=== PATIENT | male | born 1955 | race Caucasian/White ===

== ENCOUNTER 2017-12-14 15:06 | Observation (INO) | payer OTHER ==
[~2017-12-14] VITALS: Ht 170.2 cm; Wt 73.6 kg
--- NOTE | 2017-12-14 15:22 | ED CARDIAC/CP/PALPITATIONS ---
History of Present Illness General Chief Complaint: Chest Pain Stated Complaint: BIBA CP Source: patient, old records, EMS Exam Limitations: no limitations Vital Signs & Intake/Output Vital Signs & Intake/Output Vital Signs Date Time Temp Pulse Resp B/P B/P Pulse O2 O2 Flow FiO2 Mean Ox Delivery Rate 12/15 0711 98.1 64 18 130/60 98 Room Air 12/14 2134 140/88 12/149 98.4 62 18 150/80 98 Room Air 12/14 2000 97.6 66 18 174/86 97 Room Air Room Air 12/14 1728 97.4 56 18 179/84 97 12/14 1620 99 Nasal 2.0L Cannula 12/14 1510 98.2 78 18 186/89 96 Room Air Room Air ED Intake and Output 12/15 0000 12/14 1200 Intake Total 120 Output Total 300 Balance -180 Intake, Oral 120 Output, Urine 300 Patient 162 lb Weight Weight Bed scale Measurement Method Allergies Coded Allergies: NO KNOWN ALLERGIES (12/01/11) Triage Nurses Notes Reviewed? yes Onset: Abrupt Duration: day(s): (3), constant, waxing and waning Timing: recent history Quality/Severity: moderate, aching Location: L SIDED Radiation: arms Activities at Onset: none Prior Chest Pain/Card Workup: no prior chest pain Modifying Factors: Worsens With: exercise, movement. Nitro Today/Relief: 0.4 mg x 1, provided by EMS, mild relief Aspirin Today: 325 mg x 1, provided by EMS Associated Symptoms: DENIES HPI: 62-year-old male nonsmoker with no medical history presents complaining of a three-day history of left-sided chest pain radiating down his left arm worse with exertion associated with shortness of breath with exertion. Patient is medicated with sublingual nitroglycerin in route with improvement in symptoms to 5 out of 10. He denies dizziness lightheadedness nausea vomiting abdominal pain active pain or neck pain. Brennan denies history of cardiac disease in his family. No history of similar episodes in the past. (Trini ROSE,Evan) Reconcile Medications Naproxen (Naprosyn) 500 MG TABLET 1 TAB PO EOD PAIN/INFLAMMATION (Reported) Omeprazole 40 MG CAPSULE.DR 1 CAP PO DAILY GI (Reported) (Nimco SR,Liu Porras) Past History Travel History Traveled to [place] past 21 day No Medical History Any Pertinent Medical History? none Surgical History Surgical History: non-contributory Psychosocial History What is your primary language [place] Tobacco Use: Never used ETOH Use: denies use Family History Hx Contributory? No (Evan Benedict) Review of Systems Review of Systems Constitutional: Reports: see HPI. Comments Review of systems: See HPI, All other systems negative. Constitutional, no chills no fever HEENT: no sore throat no congestion Cardiovascular: chest pain , no palpitation Skin: no rashes, no change in skin Respiratory: No dyspnea no cough no sputum GI: No nausea no vomiting : No dysuria No hematuria, no frequency Muscle skeletal: No joint pain, no back pain Neurologic: , no headache Heme/endocrine: No bruising Immunology: No lymphadenopathy (Evan Benedict) Physical Exam Physical Exam General Appearance: well developed/nourished, alert, awake Cardiovascular: regular rate/rhythm Comments: Well-developed well-nourished person in no acute distress HEENT: Normal EENT exam; PERRL, EOMI, HEAD is atraumatic. moist mucous membranes. Neck: Supple, normal range of motion without pain or tenderness Back: Nontender, Full range of motion Cardiovascular: Regular rate and rhythms no murmur Respiratory: Chest nontender.There were no bony deformities, no asymmetry. No respiratory distress. Patient speaking in full complete sentences. Breath sounds clear to auscultation bilaterally: NO W/R/R Abdomen: Soft, nontender nondistended, no appreciable organomegaly. Normal bowel sounds. No rebound/guarding, Extremity: No edema, full range of motion of extremities Neuro: Alert oriented x3, motor sensory normal, There were no obvious focal neurologic abnormalities. Skin: No appreciable rash on exposed skin, skin is warm and dry. Psych: Mood and affect is normal, memory and judgment is normal. Core Measures ACS in differential dx? Yes CVA/TIA Diagnosis No Sepsis Present: No Sepsis Focused Exam Completed? No (Evan Benedict) Progress Differential Diagnosis: AMI, aortic dissection, atrial fibrillation, musculoskeletal pain, myocarditis, pericarditis, pneumonia, pneumothorax, pulmonary embolism, unstable angina, V-fib/V-Tach Plan of Care: Orders Procedure Date/time Status Heart Healthy Diet 12/15 B Active TSH REFLEX 12/15 599 Complete LYME TITRE 12/15 599 Active LIPID PANEL 05/20 0600 Complete CBC WITHOUT DIFFERENTIAL 05/20 0600 Complete BASIC ELECTROLYTES PLUS BUN&CR 12/15 0600 Complete TROPONIN LEVEL 12/15 0400 Complete EKG 12/15 0400 Active Pathway - chart 12/14 2333 Active TROPONIN LEVEL 12/14 2210 Complete EKG 12/14 2210 Active Weight 12/14 2056 Complete Vital Signs 12/14 204 Active Teach/Educate 12/15 2047 Active Pain Treatment and Response 12/15 2047 Active Nutritional Intake, Monitor 12/15 2047 Active Isolation 12/15 2047 Active Intake & Output 12/15 2047 Complete Patient Care Conference 12/15 2047 Active Activity/Ambulation 12/15 2047 Active Pathway - chart 12/15 2043 Active Pathway - chart 12/14 2009 Active Patient Data 12/[address] in observation 12/14 1800 Active ED Holding Orders 12/14 1800 Active Vital Signs 12/14 1800 Complete Code Status 12/14 1800 Active Intake & Output 12/14 1601 Active Telemetry/Protective Signal Installer 12/14 1510 Active TROPONIN LEVEL 12/14 1510 Complete COMPREHENSIVE METABOLIC PANEL 12/14 1510 Complete CBC WITHOUT DIFFERENTIAL 12/14 1510 Complete EKG 12/14 1510 Active TRC EVALUATION (GEN) 12/14 UNK Active Pathway - chart 12/14 UNK Active House Staff 12/14 UNK Active VTE Mechanical Prophylaxis 12/14 UNK Active Vital Signs 12/14 UNK Complete EKG 12/14 UNK Active Current Medications Sig/Janine Start time Last Medication Dose Stop Time Status Admin Aspirin 81 MG DAILY 12/15 0900 AC (Aspirin) Enoxaparin Sodium 40 MG DAILY 12/15 0900 AC (Lovenox) Omeprazole 40 MG DAILY AC 12/15 0700 AC 12/15 (Prilosec) 0539 Acetaminophen 650 MG Q6P PRN 12/14 2330 AC (Tylenol) Melatonin 5 MG AT BEDTIME 12/14 2199 AC 12/14 (Melatonin) 220 Multivitamins 1 TAB DAILY 12/14 204 AC 12/14 (Theragran Vitamins) 2130 Aspirin 325 MG ONCE ONE 12/14 1545 CAN (Aspirin) 12/14 1546 Nitroglycerin 0.4 MG Q 5 MINUTES X 3 DO.. 12/14 1530 AC (Nitrostat) Laboratory Tests 12/15/17 0400: Troponin I < 0.01 12/15/17 0400: Anion Gap 11, Estimated GFR > 60, BUN/Creatinine Ratio 14.0, Triglycerides 129, Cholesterol 113, LDL Cholesterol, Calc 55 L, HDL Cholesterol 33 L, Cholesterol /HDL Ratio 3, TSH &T3 &Free T4 Intrp 2.020, CBC w Diff NO MAN DIFF REQ, RBC 4.11 L, MCV 90.1, MCH 30.5, MCHC 33.9, RDW 13.7, MPV 8.4, Gran % 64.2, Lymphocytes % 25.6, Monocytes % 7.0, Eosinophils % 2.9, Basophils % 0.3, Absolute Granulocytes 4.5, Absolute Lymphocytes 1.8, Absolute Monocytes 0.5, Absolute Eosinophils 0.2, Absolute Basophils 0, Lyme Disease Antibody Pending 12/14/17 2228: Troponin I < 0.01 12/14/17 1547: Anion Gap 12, Estimated GFR > 60, BUN/Creatinine Ratio 15.6, Glucose 101 H, Calcium 9.5, Total Bilirubin 1.4 H, AST 29, ALT 21, Alkaline Phosphatase 90, Troponin I < 0.01, Total Protein 6.6, Albumin 4.0, Globulin 2.6, Albumin/ Globulin Ratio 1.5, CBC w Diff NO MAN DIFF REQ, RBC 4.30 L, MCV 90.2, MCH 30.6, MCHC 33.9, RDW 13.8, MPV 8.3, Gran % 65.7, Lymphocytes % 25.7, Monocytes % 6.1, Eosinophils % 2.2, Basophils % 0.3, Absolute Granulocytes 4.5, Absolute Lymphocytes 1.8, Absolute Monocytes 0.4, Absolute Eosinophils 0.1, Absolute Basophils 0 LABS ORDERED, PT MED WITH NITRO SL 1555 PT RESOLVED WITH 2ND NITRO 1640 I discussed with the patient all of his labs date he remains asymptomatic denies pain at this time call placed to cardiology Spoke with Dr. Sam who agrees plan and need for telemetry observation overnight given resolution of pain with nitroglycerin Case discussed with Dr. camargo will place in tele obs Diagnostic Imaging: Viewed by Me: Radiology Read. Discussed w/RAD: Radiology Read. Radiology Impression: PATIENT: BRENNAN ALVARADO PRESENT AGE: 62 PATIENT ACCOUNT NO: [id number] : 53 LOCATION: [facility] ORDERING PHYSICIAN: Evan ROSE SERVICE DATE: 12/14/17 EXAM TYPE: RAD - XRY-PORTABLE CHEST XRAY EXAMINATION: XR PORTABLE CHEST CLINICAL INFORMATION: Chest pain. COMPARISON: Chest x-ray from 12/01/2011. TECHNIQUE: Portable frontal view of the chest was obtained. FINDINGS: No airspace opacities or pleural effusions are seen. The cardiomediastinal silhouette is normal. No acute osseous abnormality is seen. Surgical clips again visualized in the left axilla. IMPRESSION: Clear lungs. No acute process. DICTATED BY: Liu Prabhakar MD DATE/TIME DICTATED:12/14/171537 RADIO MECHANIC:ELIGIO DATE/TIME TRANSCRIBED:12/14/171537 CONFIDENTIAL, DO NOT COPY WITHOUT APPROPRIATE AUTHORIZATION. <Electronically signed in Other Vendor System> SIGNED BY: Liu Prabhakar MD 12/14/17 154 Initial ED EKG: NSR AT 70, NO ACUTE ST SEG CHANGES, LAD Prior EKG: unchanged (2011) (Evan Benedict) Departure Departure Time of Disposition: 1731 Disposition: STILL A PATIENT Condition: Stable Clinical Impression Primary Impression: Chest pain Referrals: Corey SR,Trevor Roach (PCP/Family) Departure Forms: Customer Survey General Discharge Information Observation Note Spoke With: Bertha SR,Valencia Medrano Physician Advisor Notified: JULIETA SR,IMMANUEL Porras Place Patient In: Non-ED OBS Care Area Rationale for Observation: My rational for observation is as follows [cardiology consult trend labs trend troponins telemetry monitoring, patient may require outpatient stress test premature discharge is medically harmful given chest pain resolved with nitroglycerin sublingual today pain shortness of breath was reproducible with exertion (Evan Benedict) PA/CLINICAL RESEARCH NURSE COORDINATOR Co-Sign Statement Statement: ED Attending supervision documentation- [X] I saw and evaluated the patient. I have also reviewed all the pertinent lab results and diagnostic results. I agree with the findings and the plan of care as documented in the PA's/CLINICAL RESEARCH NURSE COORDINATOR's documentation. [X] I have reviewed the ED Record and agree with the PA's/CLINICAL RESEARCH NURSE COORDINATOR's documentation. [] Additions or exceptions (if any) to the PAs/CLINICAL RESEARCH NURSE COORDINATOR's note and plan are summarized below: [Patient has chest pain which is responsive to nitroglycerin. Patient placed in telemetry observation for serial enzymes and cardiology consultation.] (Liu Rinaldi MD J.) Critical Care Note Critical Care Note Critical Care Time: non-applicable (Trini ROSE,Evan)
--- NOTE | 2017-12-14 15:42 | RADIOLOGY REPORT ---
EXAMINATION: XR PORTABLE CHEST CLINICAL INFORMATION: Chest pain. COMPARISON: Chest x-ray from 12/01/2011. TECHNIQUE: Portable frontal view of the chest was obtained. FINDINGS: No airspace opacities or pleural effusions are seen. The cardiomediastinal silhouette is normal. No acute osseous abnormality is seen. Surgical clips again visualized in the left axilla. IMPRESSION: Clear lungs. No acute process.
[2017-12-14 15:56] LABS: ABSOLUTE BASOPHIL COUNT 0 /CUMM (0.0-0.2); ABSOLUTE EOSINOPHIL COUNT 0.1 /CUMM (0.0-0.7); ABSOLUTE GRANULOCYTE CT 4.5 /CUMM (1.4-6.5); ABSOLUTE LYMPH COUNT 1.8 /CUMM (1.2-3.4); ABSOLUTE MONOCYTE COUNT 0.4 /CUMM (0.10-0.60); BASOPHIL % 0.3 % (0.0-2.0); EOSINOPHIL % 2.2 % (0-5); GRANULOCYTE % 65.7 % (42.2-75.2); HEMATOCRIT 38.8 % (42-52); MEAN CORPUSCULAR HGB 30.6 PG (27.0-31.0); MEAN CORPUSCULAR HGB CONC 33.9 G/DL (33.0-37.0); MEAN CORPUSCULAR VOLUME 90.2 FL (80.0-94.0); MEAN PLATELET VOLUME 8.3 FL (7.4-10.4); PLATELET COUNT 194 /CUMM (130-400); RBC DISTRIBUTION WIDTH 13.8 % (11.5-14.5); WHITE BLOOD CELL COUNT 6.9 /CUMM (4.8-10.8)
[2017-12-14] MEDS ORDERED: NAPROSYN500 M1 PO (18:08)
[2017-12-14] MEDS ORDERED: OMEPRAZOLE40 M1 PO (18:08)
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
[2017-12-14 20:49] VITALS: BP 150/80
--- NOTE | 2017-12-14 21:03 | Cons- Cardiology ---
General Information and HPI Consulting Request Date of Consult: 12/14/17 Requested By: John Breaux MD Reason for Consult: chest pain History of Present Illness: 62-year-old male with no history of cardiac disease presenting with chest discomfort for the past 3 days. The discomfort sharp in character, and is a 5 out of 10 in severity and radiates to his left arm. The pain resolved in the emergency department after 2 sublingual nitroglycerin. He also notes recent dyspnea on exertion while walking outdoors. He is currently pain-free. No shortness of breath. No palpitations. No lightheadedness or dizziness. No nausea or vomiting. Allergies/Medications Allergies: Coded Allergies: NO KNOWN ALLERGIES (12/01/11) Home Med List: Naproxen (Naprosyn) 500 MG TABLET 1 TAB PO EOD PAIN/INFLAMMATION (Reported) Omeprazole 40 MG CAPSULE.DR 1 CAP PO DAILY GI (Reported) Current Medications: Current Medications Sig/Janine Start time Last Medication Dose Route Stop Time Status Admin Aspirin 325 MG ONCE ONE 12/14 1545 CAN PO 12/14 1546 Multivitamins 1 TAB DAILY 12/14 2043 AC PO Nitroglycerin 0 .STK-MED ONE 12/14 1556 DC SL Nitroglycerin 0.4 MG Q 5 MINUTES X 3 DO.. 12/14 1530 AC SL Past History Travel History Traveled to [place] past 21 day No Medical History Blood Transfusion Hx: No Surgical History Surgical History: non-contributory Family History Relations & Conditions If Any: FATHER Heart attack Psychosocial History Smoking Status: Never Smoked ETOH Use: denies use Exam & Diagnostic Data Diagnostic Data EKG Results EKG tracings independently reviewed, and reveals normal sinus rhythm at 53 with left anterior fascicular block and possible anteroseptal infarct, old CXR Results Clear lungs, no acute process Assessment/Plan Assessment/Plan Assessment: 1. Chest pain, responsive to nitroglycerin. Rule out myocardial ischemia 2. Abnormal EKG Plan: * Aspirin 325 mg 1 followed by 81 mg daily * check serial troponin * Monitor on telemetry * Sublingual NTG as needed for chest pain * Likely ready for discharge tomorrow if he rules out for myocardial infarction * We will plan on doing stress testing as outpatient if he reules out Consult Acknowledgment - Thank you for your consult request.
[2017-12-14 21:34] VITALS: BP 140/88
[2017-12-15 04:42] LABS: ABSOLUTE BASOPHIL COUNT 0 /CUMM (0.0-0.2); ABSOLUTE EOSINOPHIL COUNT 0.2 /CUMM (0.0-0.7); ABSOLUTE GRANULOCYTE CT 4.5 /CUMM (1.4-6.5); ABSOLUTE LYMPH COUNT 1.8 /CUMM (1.2-3.4); ABSOLUTE MONOCYTE COUNT 0.5 /CUMM (0.10-0.60); BASOPHIL % 0.3 % (0.0-2.0); EOSINOPHIL % 2.9 % (0-5); GRANULOCYTE % 64.2 % (42.2-75.2); MEAN CORPUSCULAR HGB 30.5 PG (27.0-31.0); MEAN CORPUSCULAR HGB CONC 33.9 G/DL (33.0-37.0); MEAN CORPUSCULAR VOLUME 90.1 FL (80.0-94.0); MEAN PLATELET VOLUME 8.4 FL (7.4-10.4); PLATELET COUNT 173 /CUMM (130-400); RBC DISTRIBUTION WIDTH 13.7 % (11.5-14.5); RED BLOOD CELL CT 4.11 /CUMM (4.70-6.10)
[2017-12-15 07:11] VITALS: BP 130/60
--- NOTE | 2017-12-15 13:40 | PN- Cardiology ---
Subjective Subjective: Feeling better. No further chest pain. No shortness of breath. No palpitations. No diaphoresis Objective Vital Signs and I&Os Vital Signs Date Time Temp Pulse Resp B/P B/P Pulse O2 O2 Flow FiO2 Mean Ox Delivery Rate 12/15 0800 Room Air 12/15 0711 98.1 64 18 130/60 98 Room Air 12/14 2134 140/88 12/14 2048 98.4 62 18 150/80 98 Room Air 12/14 2000 97.6 66 18 174/86 97 Room Air Room Air 12/14 1728 97.4 56 18 179/84 97 12/14 1620 99 Nasal 2.0L Cannula 12/14 1510 98.2 78 18 186/89 96 Room Air Room Air Intake & Output 12/15 1600 12/15 0800 12/15 0000 12/14 1600 12/14 0800 12/14 0000 Intake Total 240 120 Output Total 600 900 300 Balance -600 -660 -180 Intake, Oral 240 120 Output, Urine 600 900 300 Patient 162 lb 165 lb Weight Weight Bed scale Reported by Patient Measurement Method Physical Exam: Gen: NAD HEENT: normal Lungs: clear to auscultation, normal resp. effort Heart: RRR, S1, S2, no murmurs Abdomen: Soft, nontender, no masses Extremities: No clubbing, cyanosis, or edema. Neuro: Alert and oriented x 3, cranial nerves intact Current Medications: Current Medications Sig/Janine Start time Last Medication Dose Route Stop Time Status Admin Acetaminophen 650 MG Q6P PRN 12/14 2330 AC PO Aspirin 81 MG DAILY 12/15 09 AC 12/15 PO 0908 Aspirin 325 MG ONCE ONE 12/14 2215 DC 12/14 PO 12/14 221 2223 Aspirin 325 MG ONCE ONE 12/14 1545 CAN PO 12/14 1546 Enoxaparin Sodium 40 MG DAILY 12/15 09 AC 12/15 SC 0908 Melatonin 5 MG AT BEDTIME 12/14 220 AC 12/14 PO 2201 Multivitamins 1 TAB DAILY 12/14 2042 AC 12/15 PO 0908 Nitroglycerin 0 .STK-MED ONE 12/14 1556 DC SL Nitroglycerin 0.4 MG Q 5 MINUTES X 3 DO.. 12/14 1530 AC SL Omeprazole 40 MG DAILY AC 12/15 0700 AC 12/15 PO 0539 Results Last 48 Hrs of Labs/Mics: Laboratory Tests 12/15/17 0400: Troponin I < 0.01 12/15/17 0400: Anion Gap 11, Estimated GFR > 60, BUN/Creatinine Ratio 14.0, Triglycerides 129, Cholesterol 113, LDL Cholesterol, Calc 55 L, HDL Cholesterol 33 L, Cholesterol /HDL Ratio 3, TSH &T3 &Free T4 Intrp 2.020, CBC w Diff NO MAN DIFF REQ, RBC 4.11 L, MCV 90.1, MCH 30.5, MCHC 33.9, RDW 13.7, MPV 8.4, Gran % 64.2, Lymphocytes % 25.6, Monocytes % 7.0, Eosinophils % 2.9, Basophils % 0.3, Absolute Granulocytes 4.5, Absolute Lymphocytes 1.8, Absolute Monocytes 0.5, Absolute Eosinophils 0.2, Absolute Basophils 0, Lyme Disease Antibody Pending 12/14/178: Troponin I < 0.01 12/14/17 1547: Anion Gap 12, Estimated GFR > 60, BUN/Creatinine Ratio 15.6, Glucose 101 H, Calcium 9.5, Total Bilirubin 1.4 H, AST 29, ALT 21, Alkaline Phosphatase 90, Troponin I < 0.01, Total Protein 6.6, Albumin 4.0, Globulin 2.6, Albumin/ Globulin Ratio 1.5, CBC w Diff NO MAN DIFF REQ, RBC 4.30 L, MCV 90.2, MCH 30.6, MCHC 33.9, RDW 13.8, MPV 8.3, Gran % 65.7, Lymphocytes % 25.7, Monocytes % 6.1, Eosinophils % 2.2, Basophils % 0.3, Absolute Granulocytes 4.5, Absolute Lymphocytes 1.8, Absolute Monocytes 0.4, Absolute Eosinophils 0.1, Absolute Basophils 0 Assessment/Plan Assessment/Plan Assessment: 1. Chest pain, ruled out for myocardial infarction 2. Sinus bradycardia 3. Elevated blood pressure on presentation, now normal Plan: * Okay for discharge from cardiac standpoint. * Follow up in the office within 1 week * Stress test will be arranged as outpatient. * Echocardiogram can be done as outpatient if not completed in the hospital Continue telemetry? Yes
[2017-12-15 14:08] VITALS: BP 140/80
--- NOTE | 2017-12-15 14:13 | Patient Discharge Instructions ---
Discharge Instructions General Discharge Information You were seen/treated for: CHEST PAIN Special Instructions: Youre chest pain may be from GI source with naproxen and possibly gastritis because it improved with antacids, you should follow up with Dr. Escalante. You should be evaluated by a greenhouse superintendent as an outpatient to undergo an echocardiogram and stress testing for risk stratification. Acute Coronary Syndrome Inclusion Criteria At DC or during hospital stay patient has or had the following: ACS DIAGNOSIS No Discharge Core Measures Meds if any: Prescribed or Continued at Discharge Meds if any: NOT Prescribed or Continued at Discharge Congestive Heart Failure Inclusion Criteria At DC or during hospital stay patient has or had the following: CHF DIAGNOSIS No Discharge Core Measures Meds if any: Prescribed or Continued at Discharge Meds if any: NOT Prescribed or Continued at Discharge Cerebrovascular accident Inclusion Criteria At DC or during hospital stay patient has or had the following: CVA/TIA Diagnosis No Discharge Core Measures Meds if any: Prescribed or Continued at Discharge Meds if any: NOT Prescribed or Continued at Discharge Venous thromboembolism Inclusion Criteria VTE Diagnosis No VTE Type NONE VTE Confirmed by (Test) NONE Discharge Core Measures - Per Current guidelines, there needs to be overlap - treatment for the first 5 days of Warfarin therapy. - If discharged on Warfarin prior to 5 days of - overlap therapy, the patient will need to be - assessed for post discharge needs including - *Post discharge parental anticoagulation - *Warfarin and/or parental anticoagulation education - *Follow up date to check INR post discharge At least 5 days overlap therapy as Inpatient No Meds if any: Prescribed or Continued at Discharge Note: Overlap Therapy is Warfarin and Anticoagulant Meds if any: NOT Prescribed or Continued at Discharge
[2017-12-15] MEDS ORDERED: ASPIRIN81 M4 PO (14:14)
[2017-12-15] MEDS ORDERED: OMEPRAZOLE40 M1 PO ×2 (14:16→14:26)
[2017-12-15] MEDS ORDERED: NITROSTAT0.4 M1 SL ×2 (14:16→14:26)
--- NOTE | 2017-12-15 20:28 | PN- Att Addend ---
Attending Addendum Attending Brief Note S: The patient denied any further chest pain. O: VS: Vital Signs Date Time Temp Pulse Resp B/P B/P Pulse O2 O2 Flow FiO2 Mean Ox Delivery Rate 12/15 1408 98.1 73 18 140/80 98 Room Air 12/15 1402 Room Air 12/15 0800 Room Air 12/15 0711 98.1 64 18 130/60 98 Room Air 12/14 2134 140/88 12/14 2049 98.4 62 18 150/80 98 Room Air Intake & Output 12/15 1600 12/15 0800 12/15 0000 Intake Total 900 240 120 Output Total 600 900 300 Balance 300 -660 -180 Intake, Oral 900 240 120 Output, Urine 600 900 300 Patient 162 lb Weight Weight Bed scale Measurement Method Current Medications Sig/Janine Start time Last Medication Dose Route Stop Time Status Admin Acetaminophen 650 MG Q6P PRN 12/14 2330 DCD PO Aspirin 81 MG DAILY 12/15 09 DCD 12/15 PO 0908 Aspirin 325 MG ONCE ONE 12/14 2214 DC 12/14 PO 12/15 2215 222 Enoxaparin Sodium 40 MG DAILY 12/15 09 DCD 12/15 SC 0908 Melatonin 5 MG AT BEDTIME 12/14 2199 DCD 12/14 PO 2201 Multivitamins 1 TAB DAILY 12/14 2042 DCD 12/15 PO 0908 Nitroglycerin 0.4 MG Q 5 MINUTES X 3 DO.. 12/14 1530 DCD SL Omeprazole 40 MG DAILY AC 12/15 0700 DCD 12/15 PO 0539 Physical Exam: HEENT: nena- moist mucosa Neck: no JVD/bruits Chest: clear Cor: RRR nl S1, S2 w/o murm Abd: BS+, soft, NT Ext: no edema, pulses 2+ Labs/Tests: Laboratory Tests 12/15/17 0400: Troponin I < 0.01 12/15/17 0400: Anion Gap 11, Estimated GFR > 60, BUN/Creatinine Ratio 14.0, Triglycerides 129, Cholesterol 113, LDL Cholesterol, Calc 55 L, HDL Cholesterol 33 L, Cholesterol /HDL Ratio 3, TSH &T3 &Free T4 Intrp 2.020, CBC w Diff NO MAN DIFF REQ, RBC 4.11 L, MCV 90.1, MCH 30.5, MCHC 33.9, RDW 13.7, MPV 8.4, Gran % 64.2, Lymphocytes % 25.6, Monocytes % 7.0, Eosinophils % 2.9, Basophils % 0.3, Absolute Granulocytes 4.5, Absolute Lymphocytes 1.8, Absolute Monocytes 0.5, Absolute Eosinophils 0.2, Absolute Basophils 0, Lyme Disease Antibody Pending 12/14/178: Troponin I < 0.01 12/14/17 1547: Anion Gap 12, Estimated GFR > 60, BUN/Creatinine Ratio 15.6, Glucose 101 H, Calcium 9.5, Total Bilirubin 1.4 H, AST 29, ALT 21, Alkaline Phosphatase 90, Troponin I < 0.01, Total Protein 6.6, Albumin 4.0, Globulin 2.6, Albumin/ Globulin Ratio 1.5, CBC w Diff NO MAN DIFF REQ, RBC 4.30 L, MCV 90.2, MCH 30.6, MCHC 33.9, RDW 13.8, MPV 8.3, Gran % 65.7, Lymphocytes % 25.7, Monocytes % 6.1, Eosinophils % 2.2, Basophils % 0.3, Absolute Granulocytes 4.5, Absolute Lymphocytes 1.8, Absolute Monocytes 0.4, Absolute Eosinophils 0.1, Absolute Basophils 0 Impression/Plan: #Chest Pain-serial troponin levels normal. Most likely GI etiology is GERD with esophageal spasm (relieve of spasm with SL NTG). Cardiology input appreciated. Plan: OK to discharge to home today. Will temporarily increased Omeprazole to bid dose- f/u with Dr. Escalante ( his GI MD). Decrease amount of Naprosyn he is taking. Undergo OP stress test with Dr. Sam (patient asked to defer until after he returns from planned trip- leaving 01/15, however suggested by me and Dr. Sam that he has test done prior). #H/O Lyme Disease- as per H&P. Plan: Follow-up titer as OP. #GERD- as above, followed by Dr. Escalante. Plan: Will need follow-up assuming OP stress test negative.
== END 2017-12-15 15:30 ==
LOC: ERH 15:06 → ERHI 18:00 → 1NO 18:00 → ENRESERV 18:49 → ENTRNSPT 20:06 → 1NO 20:37 → CMPTRNSPT 20:39 → 1NO 20:44 → ENPENDDIS 12-15 14:18 → 1NO 12-15 14:55
PROVIDERS: Physician Assistant Medical; Student in an Organized Health Care Education/Training Program
DX: R07.9 Chest pain, unspecified (principal); K21.9 Gastro-esophageal reflux disease without esophagitis; R06.02 Shortness of breath; Z79.82 Long term (current) use of aspirin; R00.1 Bradycardia, unspecified
CPT/HCPCS: 6020; 86618; 36415; 36592; 71045; 82436; 93005; 93010; 96372; G0378; J1650; J3490